=== PATIENT | male | born 1980 | race African-American/Black ===

== ENCOUNTER 2017-07-26 10:55 | Emergency (ER) | payer OTHER ==
[~2017-07-26] VITALS: Ht 177.8 cm; Wt 80.0 kg
[2017-07-26] MEDS ORDERED: KETOROLAC 60MG/2ML VIAL IM ONE (17:30)
[2017-07-26 18:11] VITALS: BP 116/77
== END 2017-07-26 18:13 | disposition home or self-care (01) ==
LOC: ER 14:02
DX: R51 Headache (principal); M54.9 Dorsalgia, unspecified; M47.895 Other spondylosis, thoracolumbar region; W22.8XXA Striking against or struck by other objects, initial encounter; Y93.89 Activity, other specified; Y92.810 Car as the place of occurrence of the external cause
CPT/HCPCS: 70450; 72100; 96372; 99284; J1885; Z7610

== ENCOUNTER 2017-10-29 19:41 | Emergency (ER) | payer OTHER ==
[~2017-10-29] VITALS: Ht 180.3 cm; Wt 94.0 kg
[2017-10-30] MEDS ORDERED: SODIUM CHLORIDE 0.9% 1,000 ML IV ONE (00:22)
[2017-10-30] MEDS ORDERED: ONDANSETRON HCL 4MG/2ML VIAL IV STA (00:22)
[2017-10-30] MEDS ORDERED: MAGNESIUM/ALUMINUM HYDROXIDE/SIMETHICONE 30ML UDC PO STA (00:22)
[2017-10-30] MEDS ORDERED: PANTOPRAZOLE SODIUM 40 MG/VIAL IV ONE (00:30)
[2017-10-30 00:42] LABS: BASOPHILS % 0.3 % (0.0-2.0); EOSINOPHILS % 0.2 % (0.0-5.0); HEMATOCRIT. 46.9 % (42.0-52.0); HEMOGLOBIN. 15.5 g/dL (14.0-18.0); LYMPHOCYTES % 8.9 % (20.0-50.0); MEAN CORPUSCULAR HEMOGLOBIN 28.7 pg (28.0-32.0); MEAN CORPUSCULAR VOLUME 86.6 fL (80.0-94.0); MEAN PLATELET VOLUME 9.1 fl (7.4-10.4); MONOCYTES % 5.3 % (2.0-8.0); NEUTROPHILS % 85.3 % (40.0-76.0); PLATELET 200 x1000/uL (130-400); RED BLOOD CELL COUNT 5.41 mill/uL (4.7-6.1); RED CELL DISTRIBUTION WIDTH 13.9 % (11.6-14.6)
[2017-10-30 00:49] LABS: CHLORIDE 100 mEq/L (98-107)
[2017-10-30 00:51] LABS: INR 1.1; PROTHROMBIN TIME 11.2 sec (9.4-11.6)
[2017-10-30 00:58] LABS: CARBON DIOXIDE 31 mEq/L (21-32)
[2017-10-30] MEDS ORDERED: POTASSIUM CHLORIDE 20MEQ TABLET SR PO ONE (01:15)
[2017-10-30 01:22] LABS: CLARITY URINE CLEAR (CLEAR); COLOR URINE DARK YELLOW (YELLOW); KETONES URINE 1+ (NEGATIVE); LEUKOCYTE ESTERASE URINE NEGATIVE (NEGATIVE); NITRITE URINE NEGATIVE (NEGATIVE); OCCULT BLOOD URINE NEGATIVE (NEGATIVE); PROTEIN URINE 1+ (NEGATIVE); SPECIFIC GRAVITY URINE 1.029 (1.005-1.030)
[2017-10-30 01:45] VITALS: BP 135/85
== END 2017-10-30 02:45 | disposition home or self-care (01) ==
LOC: ER 19:59
DX: R10.13 Epigastric pain (principal); E87.6 Hypokalemia; R73.9 Hyperglycemia, unspecified; R11.2 Nausea with vomiting, unspecified; F12.10 Cannabis abuse, uncomplicated
CPT/HCPCS: 36415; 80053; 81001; 83690; 85025; 85610; 96374; 96375; 99284; C9113; J2405; J7030; Z7610

== ENCOUNTER 2019-09-19 09:44 | Emergency (ER) | payer OTHER ==
[~2019-09-19] VITALS: Ht 180.3 cm; Wt 90.0 kg
[2019-09-19] MEDS ORDERED: SODIUM CHLORIDE 0.9% 1,000 ML IV ONE (10:24)
[2019-09-19 11:09] LABS: BASOPHILS % 0.5 % (0.0-2.0); EOSINOPHILS % 0.5 % (0.0-5.0); LYMPHOCYTES % 19.6 % (20.0-50.0); MEAN CORPUSCULAR HEMOGLOBIN 29.4 pg (28.0-32.0); MEAN CORPUSCULAR VOLUME 88.4 fL (80.0-94.0); MEAN PLATELET VOLUME 9.9 fl (7.4-10.4); MONOCYTES % 4.3 % (2.0-8.0); NEUTROPHILS % 75.1 % (40.0-76.0); PLATELET 178 x1000/uL (130-400); RED BLOOD CELL COUNT 5.43 mill/uL (4.7-6.1); RED CELL DISTRIBUTION WIDTH 13.2 % (11.6-14.6)
[2019-09-19 11:15] LABS: CHLORIDE 106 mEq/L (98-107)
[2019-09-19] MEDS ORDERED: PROPOFOL 200MG/20ML VIAL IV ONE (12:00)
[2019-09-19 15:30] VITALS: BP 141/97
== END 2019-09-19 16:03 | disposition home or self-care (01) ==
LOC: ER 09:44
DX: S43.085A Other dislocation of left shoulder joint, initial encounter (principal); F12.10 Cannabis abuse, uncomplicated; X58.XXXA Exposure to other specified factors, initial encounter; Y93.89 Activity, other specified; Y92.89 Other specified places as the place of occurrence of the external cause
CPT/HCPCS: 23650; 36415; 73030; 80053; 85025; 99152; 99285; J2704; J7030; Z7610

== ENCOUNTER 2022-11-28 07:22 | Emergency (ER) | payer MEDICAID, OTHER ==
[~2022-11-28] VITALS: Ht 180.3 cm; Wt 104.0 kg
[2022-11-28] MEDS ORDERED: IBUPROFEN 400MG TABLET PO ONE (08:30)
[2022-11-28] MEDS ORDERED: IBUP-2028 MT (10:02)
[2022-11-28 11:12] VITALS: BP 116/68
== END 2022-11-28 11:14 | disposition home or self-care (01) ==
LOC: ER 07:22
DX: M79.641 Pain in right hand (principal); G56.02 Carpal tunnel syndrome, left upper limb; F12.10 Cannabis abuse, uncomplicated
CPT/HCPCS: 29125; 73120; 99283

== ENCOUNTER 2023-11-20 07:54 | Emergency (ER) | payer MEDICAID, OTHER ==
[~2023-11-20] VITALS: Ht 182.9 cm; Wt 89.0 kg
[~2023-11-20 07:54] MED LIST: IBUP-2028 MT
[2023-11-20 07:57] VITALS: PULSE 81; RESP 16
[2023-11-20 08:04] VITALS: BP 140/88; TEMP 97.9; O2SAT 99
[2023-11-20] MEDS ORDERED: IBUP-2029 MT (14:08)
[2023-11-20] MEDS ORDERED: METH-773 MT (14:08)
[2023-11-20] MEDS ORDERED: KETOROLAC 60MG/2ML VIAL IM ONE (14:15)
== END 2023-11-20 14:17 | disposition home or self-care (01) ==
LOC: ER 07:54
DX: M54.50 Low back pain, unspecified (principal); F12.10 Cannabis abuse, uncomplicated; V49.49XA Driver injured in collision with other motor vehicles in traffic accident, initial encounter; Y93.89 Activity, other specified; Y92.89 Other specified places as the place of occurrence of the external cause; Y99.8 Other external cause status
CPT/HCPCS: 99283; 72100; 96372; J1885

== ENCOUNTER 2024-07-21 04:18 | Emergency (ER) | payer SELFPAY ==
[~2024-07-21] VITALS: Ht 180.3 cm; Wt 94.0 kg
[~2024-07-21 04:18] MED LIST changes: +IBUP-2029 MT; +METH-773 MT
[2024-07-21 04:20] VITALS: O2SAT 100
[2024-07-21 08:52] VITALS: BP 147/95; PULSE 65; RESP 15; TEMP 36.39180; O2SAT 100
[2024-07-21] MEDS ORDERED: CYCL10TA21 MT (09:16)
[2024-07-21] MEDS ORDERED: IBUP-2029 MT (09:16)
[2024-07-21] MEDS: IBUPROFEN 600MG TABLET PO ONE (09:35)
== END 2024-07-21 09:37 | disposition home or self-care (01) ==
LOC: ER 04:18
DX: M54.50 Low back pain, unspecified (principal); F12.10 Cannabis abuse, uncomplicated; Z79.899 Other long term (current) drug therapy
CPT/HCPCS: 99283

== ENCOUNTER 2025-10-22 14:49 | Emergency (ER) | payer OTHER ==
[~2025-10-22] VITALS: Ht 180.3 cm; Wt 92.0 kg
[~2025-10-22 14:49] MED LIST changes: +CYCL10TA21 MT; +IBUP-1455 MT; -IBUP-2029 MT
[2025-10-22 14:51] VITALS: BP 137/85; TEMP 36.7; O2SAT 100
[2025-10-22 14:54] VITALS: PULSE 81; RESP 16; O2SAT 99
== END 2025-10-22 18:01 | disposition left against medical advice (07) ==
LOC: ER 14:49
DX: M54.50 Low back pain, unspecified (principal)
CPT/HCPCS: 99281